=== PATIENT | female | born 1970 | race Caucasian/White ===

== ENCOUNTER 2017-02-15 19:13 | Emergency (ER) | payer BC ==
[~2017-02-15] VITALS: Ht 162.6 cm; Wt 97.0 kg
[2017-02-15 19:31] VITALS: Ht 162.6 cm; Wt 97.0 kg
[2017-02-15] MEDS ORDERED: ACET500C5 PO (20:29)
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
== END 2017-02-15 20:42 | disposition home or self-care (01) ==
LOC: FTE 19:13
DX: S09.90XA Unspecified injury of head, initial encounter (principal); J45.909 Unspecified asthma, uncomplicated; V49.50XA Passenger injured in collision with unspecified motor vehicles in traffic accident, initial encounter
CPT/HCPCS: 99283